=== PATIENT | female | born 2000 | race Caucasian/White ===

== ENCOUNTER 2021-04-30 13:18 | Emergency (ER) | payer BC, OTHER ==
[2021-04-30 13:39] VITALS: O2SAT 100
[2021-04-30] MEDS ORDERED: Sodium Chloride 0.9% 1000 ML 1,000 ML IV STA (13:50)
--- NOTE | 2021-04-30 13:54 | ERPHSYRPT ---
- History of Present Illness Time Seen by Provider: 04/30/21 13:30 Historian: patient Exam Limitations: no limitations Patient Subjective Stated Complaint: Pt states "I woke up this morning with horrible cramps and it has just gotten worse. I also have new diarrhea since this morning." Triage Nursing Assessment: Pt presented alert and oriented X3, skin wpd Pt ambualtes with an upright steady gait, able to speak in clear full senteneces. pt in no apparent respiratory distress. Physician History: 20 years old female presented in the ER with chief complaint of lower abdominal pain sudden onset this morning. Reports constant sharp cramping moderate intensity, aggravated with movements palpation and no significant relieving factors, associated with multiple episodes of loose watery stool without hematochezia. Reports some nausea but no vomiting. Denies any urinary symptoms. LMP almost a month ago. Timing/Duration: today, constant, sudden, worse Activities at Onset: rest Quality: cramping, sharpness Abdominal Pain Onset Location: periumbilical, suprapubic Pain Radiation: no radiation Severity of Pain-Max: moderate Severity of Pain-Current: moderate Modifying Factors: Worsens With: movement, palpation Associated Symptoms: diarrhea, fatigue, nausea Previous symptoms: no prior history Allergies/Adverse Reactions: Penicillins Allergy (Intermediate, Verified 04/30/21 13:39) Hives Home Medications: No Reportable Medications [No Reported Medications] 04/30/21 [History] Hx Tetanus, Diphtheria Vaccination/Date Given: Yes Hx Influenza Vaccination/Date Given: No Hx Pneumococcal Vaccination/Date Given: No Immunizations Up to Date: Yes Travel Risk - International Travel Have you traveled outside of the country in past 3 weeks: No - Coronavirus Screening Are you exhibiting any of the following symptoms?: No Close contact with a COVID-19 positive Pt in past 14-21 Days: No - Vaccine Status Have you recieved a Covid-19 vaccination: No - Review of Systems Constitutional: No Symptoms Eyes: No Symptoms Ears, Nose, & Throat: No Symptoms Respiratory: No Symptoms Cardiac: No Symptoms Abdominal/Gastrointestinal: Abdominal Pain, Nausea, Diarrhea Genitourinary Symptoms: No Symptoms Musculoskeletal: No Symptoms Skin: No Symptoms Neurological: No Symptoms Psychological: No Symptoms Endocrine: No Symptoms Hematologic/Lymphatic: No Symptoms Immunological/Allergic: No Symptoms - Past Medical History Pertinent Past Medical History: No Neurological History: No Pertinent History Cardiac History: No Pertinent History Respiratory History: Other Endocrine Medical History: No Pertinent History Musculoskeletal History: No Pertinent History GI Medical History: No Pertinent History History: No Pertinent History - Past Surgical History Past Surgical History: No - Social History Smoking Status: Never smoker Exposure to second hand smoke: No Drug Use: marijuana Patient Lives Alone: No - Female History Hx Last Menstrual Period: 04/04/2021 Hx Now: No - Nursing Vital Signs Nursing Vital Signs: Initial Vital Signs Temperature 97.8 F 04/30/21 13:33 Pulse Rate 88 04/30/21 13:33 Respiratory Rate 20 04/30/21 13:33 Blood Pressure 110/86 04/30/21 13:33 O2 Sat by Pulse Oximetry 100 04/30/21 13:33 Pain Scale Pain Intensity 1 - Physical Exam General Appearance: no apparent distress, alert Eye Exam: PERRL/EOMI, eyes nml inspection Ears, Nose, Throat Exam: normal ENT inspection, pharynx normal Neck Exam: normal inspection, non-tender, supple, full range of motion Respiratory Exam: normal breath sounds, lungs clear Cardiovascular Exam: regular rate/rhythm, normal heart sounds Gastrointestinal/Abdomen Exam: soft, normal bowel sounds, tenderness (Lower abdominal more of the left lower/suprapubic area) Back Exam: normal inspection, normal range of motion Extremity Exam: normal inspection, normal range of motion, pelvis stable Neurologic Exam: alert, oriented x 3, cooperative, computing architect II-XII nml as tested Skin Exam: normal color SpO2 Interpretation: normal SpO2: 100 O2 Delivery: Room Air Ordered Tests: Active Orders 24 hr Category Date Time Status IV Insertion STAT Care 04/30/21 13:50 Active NPO (ED) STAT Care 04/30/21 13:50 Active ABDOMEN AND PELVIS W/0 CONTRAS [CT] Stat Exams 04/30/21 13:51 Completed CBC W DIFF Stat Lab 04/30/21 14:09 Completed CMP Stat Lab 04/30/21 14:09 Completed HCG,QUALITATIVE URINE Stat Lab 04/30/21 16:06 Completed LIPASE Stat Lab 04/30/21 14:09 Completed UA W/RFX UR CULTURE Stat Lab 04/30/21 16:06 Completed Medication Summary Discontinued Medications Generic Name Dose Route Start Last Admin Trade Name Freq PRN Reason Stop Dose Admin Sodium Chloride 1,000 mls @ 999 mls/hr 04/30/21 13:50 04/30/21 16:45 Sodium Chloride 0.9% 1000 Ml IV 04/30/21 14:50 Infused .Q1H1M STA Infusion Sodium Chloride Confirm 04/30/21 15:37 Sodium Chloride 0.9% 1000 Ml Administered 04/30/21 15:38 Dose 1,000 mls @ ud .ROUTE .STK-MED ONE Lab/Rad Data: Laboratory Result Diagrams 04/30/21 14:09 04/30/21 14:09 Laboratory Results 04/30/21 04/30/21 04/30/21 Range/Units 16:06 16:06 14:09 WBC (4.0-10.5) K/mm3 RBC (4.1-5.4) M/mm3 Hgb (12.0-16.0) gm/dl Hct (35-47) % MCV (78-100) fl MCH (26-32) pg MCHC (32-36) g/dl RDW (11.5-14.0) % Plt Count (150-450) K/mm3 MPV (7.5-11.0) fl Gran % (36.0-66.0) % Eos # (Auto) (0-0.5) Absolute Lymphs (auto) (1.0-4.6) Absolute Monos (auto) (0.0-1.3) Lymphocytes % (24.0-44.0) % Monocytes % (0.0-12.0) % Eosinophils % (0.00-5.0) % Basophils % (0.0-0.4) % Absolute Granulocytes (1.4-6.9) Basophils # (0-0.4) Sodium 139 (137-145) mmol/L Potassium 4.0 (3.5-5.1) mmol/L Chloride 105 (98-107) mmol/L Carbon Dioxide 24 (22-30) mmol/L Anion Gap 14.0 (5-15) MEQ/L BUN 14 (7-17) mg/dL Creatinine 0.69 (0.52-1.04) mg/dL Estimated GFR > 60.0 ML/MIN Glucose 74 (74-106) mg/dL Calcium 9.2 (8.4-10.2) mg/dL Total Bilirubin 0.70 (0.2-1.3) mg/dL AST 21 (14-36) U/L ALT 11 (0-35) U/L Alkaline Phosphatase 64 (38-126) U/L Serum Total Protein 7.0 (6.3-8.2) g/dL Albumin 4.5 (3.5-5.0) g/dL Lipase 44 (23-300) U/L Urine Color YELLOW (YELLOW) Urine Appearance SLIGHTLY CLOUDY (CLEAR) Urine pH 5.0 (5-6) Ur Specific [place] 1.027 (1.005-1.025) Urine Protein NEGATIVE (Negative) Urine Ketones MODERATE (NEGATIVE) Urine Blood NEGATIVE (0-5) Wilder/ul Urine Nitrite NEGATIVE (NEGATIVE) Urine Bilirubin NEGATIVE (NEGATIVE) Urine Urobilinogen NEGATIVE (0-1) mg/dL Ur Leukocyte Esterase SMALL (NEGATIVE) Urine WBC (Auto) NONE (0-5) /HPF Urine RBC (Auto) NONE (0-2) /HPF U Epithel Cells (Auto) RARE (FEW) /HPF Urine Bacteria (Auto) NONE (NEGATIVE) /HPF Urine Mucus (Auto) SLIGHT (NEGATIVE) /HPF Urine Culture Reflexed NO (NO) Urine Glucose NEGATIVE (NEGATIVE) mg/dL Urine HCG, Qual NEGATIVE (Negative) 04/30/21 Range/Units 14:09 WBC 12.4 H (4.0-10.5) K/mm3 RBC 4.38 (4.1-5.4) M/mm3 Hgb 12.4 (12.0-16.0) gm/dl Hct 38.2 (35-47) % MCV 87.2 (78-100) fl MCH 28.3 (26-32) pg MCHC 32.5 (32-36) g/dl RDW 12.1 (11.5-14.0) % Plt Count 175 (150-450) K/mm3 MPV 10.6 (7.5-11.0) fl Gran % 80.3 H (36.0-66.0) % Eos # (Auto) 0.07 (0-0.5) Absolute Lymphs (auto) 1.62 (1.0-4.6) Absolute Monos (auto) 0.73 (0.0-1.3) Lymphocytes % 13.1 L (24.0-44.0) % Monocytes % 5.9 (0.0-12.0) % Eosinophils % 0.6 (0.00-5.0) % Basophils % 0.1 (0.0-0.4) % Absolute Granulocytes 9.94 H (1.4-6.9) Basophils # 0.01 (0-0.4) Sodium (137-145) mmol/L Potassium (3.5-5.1) mmol/L Chloride (98-107) mmol/L Carbon Dioxide (22-30) mmol/L Anion Gap (5-15) MEQ/L BUN (7-17) mg/dL Creatinine (0.52-1.04) mg/dL Estimated GFR ML/MIN Glucose (74-106) mg/dL Calcium (8.4-10.2) mg/dL Total Bilirubin (0.2-1.3) mg/dL AST (14-36) U/L ALT (0-35) U/L Alkaline Phosphatase (38-126) U/L Serum Total Protein (6.3-8.2) g/dL Albumin (3.5-5.0) g/dL Lipase (23-300) U/L Urine Color (YELLOW) Urine Appearance (CLEAR) Urine pH (5-6) Ur Specific [place] (1.005-1.025) Urine Protein (Negative) Urine Ketones (NEGATIVE) Urine Blood (0-5) Wilder/ul Urine Nitrite (NEGATIVE) Urine Bilirubin (NEGATIVE) Urine Urobilinogen (0-1) mg/dL Ur Leukocyte Esterase (NEGATIVE) Urine WBC (Auto) (0-5) /HPF Urine RBC (Auto) (0-2) /HPF U Epithel Cells (Auto) (FEW) /HPF Urine Bacteria (Auto) (NEGATIVE) /HPF Urine Mucus (Auto) (NEGATIVE) /HPF Urine Culture Reflexed (NO) Urine Glucose (NEGATIVE) mg/dL Urine HCG, Qual (Negative) - Progress Progress: improved, pain not gone completely, re-examined Progress Note: 04/30/21 17:45 20 years old is evaluated for lower abdominal cramping. She has a minimally elevated white count of 12, grossly unremarkable chemistries. Negative urinalysis for UTI. CT abdomen pelvis without contrast is negative for any acute findings. Patient is offered pain medication which she refused. She is feeling better after fluids. No peritoneal signs on repeated evaluation. This could be premenstrual cramps. Ruled out all the major emergencies. Stable for discharge, recommended taking Tylenol ibuprofen as needed and outpatient follow- up. Discussed signs symptoms of worsening needing return to ER which patient/father seem understanding. Counseled pt/family regarding: lab results, diagnosis, need for follow-up, rad results - Departure Departure Disposition: Home Clinical Impression: Abdominal cramping in left lower quadrant Condition: Stable Critical Care Time: No Referrals: DOCTOR,NO FAMILY [Primary Care Provider] - BRANDON ALLRED MD [ACTIVE STAFF] - Follow Up with PCP/3 days Instructions: Acute Abdomen (Belly Pain), Adult (DC) Additional Instructions: Take Tylenol/ibuprofen as needed. Drink plenty of fluids. Follow-up with primary care for reevaluation. Return to ER for intractable pain/vomiting/fever chills etc.
[2021-04-30 14:24] LABS: Absolute Neutrophil Ct (ANC) 9.94 (1.4-6.9); BASOPHIL % 0.1 % (0.0-0.4); Basophil (Absolute #) 0.01 (0-0.4); Eosinophil % 0.6 % (0.00-5.0); Eosinophil (Absolute #) 0.07 (0-0.5); Hematocrit 38.2 % (35-47); Hemoglobin 12.4 gm/dl (12.0-16.0); Lymphocyte (Absolute #) 1.62 (1.0-4.6); Lymphocytes % 13.1 % (24.0-44.0); Mean Cell Volume 87.2 fl (78-100); Mean Corpuscular Hemoglobin 28.3 pg (26-32); Mean Corpuscular Hgb Concent. 32.5 g/dl (32-36); Mean Platelet Volume 10.6 fl (7.5-11.0); Monocyte (Absolute #) 0.73 (0.0-1.3); Monocytes % 5.9 % (0.0-12.0); Neutrophil % 80.3 % (36.0-66.0); Platelet Count 175 K/mm3 (150-450); Red Blood Count 4.38 M/mm3 (4.1-5.4); Red Cell Distribution Width 12.1 % (11.5-14.0); White Blood Count 12.4 K/mm3 (4.0-10.5)
[2021-04-30 14:34] LABS: ALBUMIN 4.5 g/dL (3.5-5.0); ALKALINE PHOSPHATASE 64 U/L (38-126); BLOOD UREA NITROGEN 14 mg/dL (7-17); CHLORIDE 105 mmol/L (98-107); Calcium 9.2 mg/dL (8.4-10.2); Carbon Dioxide 24 mmol/L (22-30); Creatinine 1 0.69 mg/dL (0.52-1.04); EST GLOMERULAR FILTRATION RATE > 60.0 ML/MIN; Glucose 74 mg/dL (74-106); LIPASE 44 U/L (23-300); SGOT/AST 21 U/L (14-36); SGPT/ALT 11 U/L (0-35); SODIUM 139 mmol/L (137-145)
[2021-04-30] MEDS ORDERED: Sodium Chloride 0.9% 1000 ML 1,000 ML ONE (15:37)
[2021-04-30 16:49] LABS: Appearance SLIGHTLY CLOUDY (CLEAR); Bilirubin NEGATIVE (NEGATIVE); Blood NEGATIVE Ery/ul (0-5); Epithelial Cells RARE /HPF (FEW); Glucose NEGATIVE (NEGATIVE); Ketones MODERATE (NEGATIVE); Leukocyte Esterase SMALL (NEGATIVE); Mucus SLIGHT /HPF (NEGATIVE); Nitrite NEGATIVE (NEGATIVE); Protein,Urine Dip NEGATIVE (Negative); Specific Gravity 1.027 (1.005-1.025); Urobilinogen NEGATIVE mg/dL (0-1)
[2021-04-30 17:36] VITALS: BP 96/67; PULSE 76
--- NOTE | 2021-04-30 17:43 | XRAY ---
Exam: CT of the abdomen and pelvis without IV contrast from 04/30/2021. CTDI: 2.67 mGy Comparison: None. Indication: 20-year-old female with lower abdominal pain and cramping/nausea since early this morning. Technique: Non-IV contrast axial images were obtained through the abdomen and pelvis. No oral contrast was given. Reconstructed coronal and sagittal images were created and reviewed. Findings: The visualized lung bases appear clear. The liver and spleen appear within normal limits of size. No gross mass is seen. The gallbladder is partially distended and reveals no intraluminal calcifications. Assessment of some of the soft tissue structures is difficult because there is a paucity of intraperitoneal fat in this thin individual. Also, no CT oral or IV contrast has been employed. The pancreatic tail appears unremarkable. The pancreatic head is not well-defined by this exam because of adjacent unopacified soft tissue structures. No adrenal gland mass is seen. The kidneys appear of average size and shape. No renal calculi or hydronephrosis is seen. Abdominal aorta appears of normal diameter. No obvious abnormal retroperitoneal lymphadenopathy is seen. No free intraperitoneal air or ventral abdominal wall hernia is seen. The appendix within the right lower quadrant is not positively identified, but I see no secondary findings to suggest appendicitis. There is no evidence of bowel obstruction. The uterus is markedly anteflexed. The urinary bladder is partially empty. I see no obvious free intraperitoneal fluid. Assessment of the other soft tissue structures within the pelvis is limited because of the paucity of intraperitoneal fat. The skeleton reveals no acute fracture or aggressive bone lesion. There is very slight convexity of the upper lumbar spine toward the left centered at L1-L2. This could be positional. Impression: 1. No significant abnormality is seen within the abdomen or pelvis. However, it should be noted that the sensitivity of this exam is diminished due to the patient's paucity of intraperitoneal fat causing crowding of non-opacified soft tissue structures in close proximity with each other. This is the type body habitus in which both oral and and IV contrast can be particularly helpful.
== END 2021-04-30 18:08 | disposition home or self-care (01) ==
LOC: ED 13:18
DX: R10.32 Left lower quadrant pain (principal); R10.33 Periumbilical pain; R19.7 Diarrhea, unspecified
CPT/HCPCS: 36000; 36415; 74176; 80053; 81001; 83690; 84703; 85025; 96360; 99284